=== PATIENT | male | born 1950 | race Caucasian/White ===

== ENCOUNTER 2018-06-24 12:09 | Emergency (ER) | payer MEDICARE, OTHER ==
[~2018-06-24] VITALS: Ht 180.3 cm; Wt 97.5 kg
[~2018-06-24 12:09] MED LIST: BP MED; CEFTIN500 MG PO; CIPROFLOXACIN500 M3 PO; FLOMAX PO; HCTZ; HYDROCODONE-ACET5 ML PO; LIDOCAINE VISC100 M1 SWISH&SPIT; MAGIC MOUTHWASH PO; MULTIVITAMINS1 EAC7 PO; Magic Mouthwash PO; NORCO 7.5-3251 EACH PO; PERCOCET 5-3251 EACH PO; TAMSULOSIN HCL0.4 MG PO; VITAMIN B COMP1 EACH PO; VITAMIN B-12100 MC1 PO; ZOFRAN4 MG PO; ZPAK PO
[2018-06-24] MEDS ORDERED: TRAZODONE HCL100 MG PO (12:33)
[2018-06-24] MEDS ORDERED: LISINOPRIL10 MG PO (12:34)
[2018-06-24 14:39] VITALS: BP 134/68
== END 2018-06-24 14:40 | disposition home or self-care (01) ==
LOC: M.ERS 12:09
DX: R60.0 Localized edema (principal); I10 Essential (primary) hypertension; G47.30 Sleep apnea, unspecified; N40.0 Benign prostatic hyperplasia without lower urinary tract symptoms; Z87.442 Personal history of urinary calculi

== ENCOUNTER 2018-12-13 17:51 | Inpatient (IN) | payer MEDICARE, OTHER ==
[~2018-12-13] VITALS: Ht 177.8 cm; Wt 99.3 kg
--- NOTE | ~2018-12-13 | OP ---
[address] [address] OPERATIVE REPORT Name: FANTASMA RODRIGUEZ Room: [address] IN .R.#: [id number] Admission: 12/13/18 Attend Phys: Laureen Oconnor MD Discharge: Date of : 50 Report #: [id number] THIS REPORT FOR: //name// CC: FAM unknown Laureen Oconnor DATE OF SERVICE: 12/14/2018 UROLOGY OPERATIVE NOTE PREOPERATIVE DIAGNOSIS: Right ureteral stone with ureteral obstruction. POSTOPERATIVE DIAGNOSIS: Right ureteral stone with ureteral obstruction. PROCEDURE PERFORMED: Cystoscopy with right retrograde pyelogram, ureteroscopy, laser lithotripsy, and stent placement. SURGEON: Durga Cates MD ANESTHESIA: General. ESTIMATED BLOOD LOSS: Minimal. COMPLICATIONS: None. INDICATION FOR PROCEDURE: This is a 68-year-old gentleman, who presented to the Emergency Room with severe right flank pain. He has a history of kidney stones. A CT scan was performed. It revealed an 8 mm proximal right ureteral stone with hydronephrosis. His options for management were discussed in detail and he was elected to proceed with cystoscopy, right retrograde pyelogram, ureteroscopy, laser lithotripsy, and stent. The risks, benefits, and possible complications were explained in detail. He has a chance to ask questions, which were answered to his satisfaction and he elected to proceed. DESCRIPTION OF PROCEDURE: After obtaining informed consent, the patient was taken to the operating room and placed in supine position. After adequate general anesthesia and IV antibiotics, he was prepped and draped in the dorsal lithotomy position. A 21-Prydeinig cystoscope with 30-degree lens was introduced into the anterior urethra with normal caliber all the way down to the prostatic urethra, which showed several friable vessels at the bladder neck and mid prostate. There was small amount of nodular regrowth throughout the prostate. Upon entering the bladder, the bladder was systematically inspected. There were no stones, tumors, or diverticula. The right ureteral orifice was cannulated with a 5-Prydeinig open-ended ureteral catheter and retrograde pyelogram was performed. A normal caliber ureter all the way up to the proximal ureter, where there was a filling defect estimated about 7-8 [place] [address] OPERATIVE REPORT Name: FANTASMA RODRIGUEZ Room: [address]#: [id number] Admission: 12/13/18 Attend Phys: Laureen Oconnor MD Discharge: Date of : 50 Report #: [id number] known stone. There was proximal hydronephrosis. A sensor guidewire was passed in retrograde fashion alongside the stone into the renal pelvis. The stone appeared to be pushed back into the renal pelvis. A second wire was placed as a safety wire and an 11 ureteral access sheath was gently passed over one of the wires into the mid ureter under fluoroscopic guidance. Flexible ureteroscopy was then carried out through the access sheath into the kidney, where the stone was identified in an upper pole allison. Using a 200 micron holmium laser fiber, the stone was fragmented in multiple tiny fragments. The larger fragments were basketed and retrieved atraumatically. These were passed off the table and sent to the lab for stone analysis. The remainder of the kidney was inspected. There was no evidence of any stones or other abnormalities. The access sheath was removed and the ureter was inspected with removal of the ureteroscope. There was small amount of edema and erythema where the stone had been lodged in the proximal ureter. Otherwise, there was no evidence of any ureteral injury or stone fragments. The cystoscope was replaced in the bladder and a 4.8 x 28 cm double-J stent was passed in retrograde fashion over the wire into the renal pelvis. A good coil was noted overlying the renal pelvis under fluoroscopy and a good coil was directly visualized in the bladder. The bladder was drained. Uro-Jet was applied per urethra and there was some small amount of bleeding from the prostatic urethra due to some friable vessels, so these were cauterized with a Bugbee. Hemostasis was then obtained. The bladder was drained and then the patient was extubated and taken to recovery room in good condition. Plan is to follow up in 1-2 weeks for stent removal. The patient does not need a KUB prior to his appointment. By: [id number] Cates MD /hailey
[~2018-12-13 17:51] MED LIST changes: +LISINOPRIL10 MG PO; +TRAZODONE HCL100 MG PO
[2018-12-13 17:58] VITALS: BP 181/77
[2018-12-13 18:14] LABS: URINE BILIRUBIN NEGATIVE (Negative); URINE BLOOD 3+ (Negative); URINE CLARITY CLEAR; URINE COLOR YELLOW; URINE GLUCOSE-RANDOM NEGATIVE (Negative); URINE KETONES TRACE (Negative); URINE LEUKOCYTES-REFLEX TRACE (Negative); URINE NITRITE-REFLEX NEGATIVE (Negative); URINE PROTEIN NEGATIVE (Negative); URINE UROBILINOGEN 0.2 E.U./dl (0.2-1.0)
[2018-12-13 18:55] LABS: SQUAMOUS >10 Many /LPF (0-3); URINE RBC >20 Many /HPF (0-2)
[2018-12-13 18:56] LABS: BACTERIA-REFLEX 1-9 Few /HPF (None Seen); CASTS None Seen /LPF (None Seen); URINE WBC-REFLEX 0-5 Rare /HPF (0-5)
[2018-12-13 18:57] LABS: CRYSTALS None Seen /LPF (None Seen); MUCUS None Seen strn/LPF (None Seen)
[2018-12-13 19:40] LABS: HEMATOCRIT 44.1 % (42.0-52.0); HEMOGLOBIN 14.8 gm/dL (14.0-18.0); MCH 30.6 pg (26.0-34.0); MCHC 33.6 g/dL (28.0-37.0); MCV 91.1 fL (80.0-100.0); MPV 8.7 fl. (7.2-11.1); NUCLEATED RBCS 0 /100WBC; PLATELET COUNT* 205 thou/uL (150-400); RBC 4.84 mil/uL (4.50-6.00); RDW-CV 14.9 % (10.5-14.5); WBC 11.2 thou/uL (4.0-11.0)
[2018-12-13 19:53] LABS: ANION GAP 13 mmol/L (7-16); BUN 21 mg/dL (7-18); CALCIUM 9.8 mg/dL (8.5-10.1); CHLORIDE 102 mmol/L (98-107); CO2 25 mmol/L (21-32); CREATININE 1.2 mg/dL (0.6-1.3); GLUCOSE 121 mg/dL (70-99); POTASSIUM 3.6 mmol/L (3.5-5.1); SODIUM 140 mmol/L (136-145)
[2018-12-13 19:57] LABS: ALBUMIN 4.6 g/dL (3.4-5.0); ALKALINE PHOSPHATASE 78 U/L (46-116); LIPASE 120 U/L (73-393); SGOT 27 U/L (15-37); SGPT 32 U/L (30-65); TOTAL BILIRUBIN 0.8 mg/dL (<0.1-1.0); TOTAL PROTEIN 8.2 g/dL (6.4-8.2); TROPONIN-I LEVEL <0.06 ng/mL (<0.06)
[2018-12-13 20:21] LABS: ABSOLUTE LYMPHOCYTES 0.6 thou/uL (0.8-5.3); ABSOLUTE MONOCYTES 0.4 thou/uL (0.0-1.2); ABSOLUTE NEUTROPHILS 10.2 thou/uL (1.6-8.1); PLATELET ESTIMATE ADEQUATE
[2018-12-13 20:21] LABS: AMP/METHAMP Negative (Negative); BARBITURATES Negative (Negative); BENZODIAZEPINES Negative (Negative); COCAINE Negative (Negative); METHADONE Negative (Negative); OPIATES Negative (Negative); PCP Negative (Negative); THC POSITIVE (Negative)
[2018-12-13 23:58] VITALS: BP 149/88
[2018-12-14 00:50] VITALS: BP 152/79
--- NOTE | 2018-12-14 05:29 | NUR ---
PT ADMITTED TO FLOOR FROM ER AT ABOUT MIDNIGHT. VSS ON RA. ADMISSION ASSESSMENT COMPLETED AND DOCUMENTED. NO PAIN MEDS GIVEN THIS SHIFT. NPO AFTER MIDNIGHT. PT ORIENTED TO ROOM AND CALL LIGHT. PT SLEPT WELL THIS SHIFT. CALL LIGHT WITHIN REACH. HOURLY ROUNDINGS MADE. WILL CONTINUE TO MONITOR.
[2018-12-14 07:30] VITALS: BP 178/91
[2018-12-14 09:54] VITALS: BP 178/91
--- NOTE | 2018-12-14 11:45 | NUR ---
SW attempted to meet with pt to complete initial assessment, but pt was off of the unit for surgery at the time. SW to continue to follow to assist with safe dc planning.
[2018-12-14 13:10] VITALS: BP 163/96
[2018-12-14] MEDS ORDERED: LEVSIN-SL0.125 MG PO (13:47)
[2018-12-14] MEDS ORDERED: NORCO 5-325 TA1 EAC1 PO (13:48)
[2018-12-14] MEDS ORDERED: PHENAZOPYRIDIN200 M2 PO (13:48)
[2018-12-14 13:49] VITALS: BP 178/91
--- NOTE | 2018-12-14 15:03 | NUR ---
PATIENT RETURNED FROM [facility] THIS AFTERNOON. UP WITH ASSISTANCE, VOIDING WITHOUT DIFFICULTY, TOLERATING DIET. NO COMPLAINTS OF PAIN. VITALS STABLE. OK FROM UROLOGY STANDPOINT TO DISCHARGE. DR. WINSLOW NOTIFIED AND OK TO DISCHARGE HOME. IV DC'D. VERBALIZES UNDERSTANDING OF PAPERWORK AND SCRIPTS. PATIENT AMBULATED OUT WITH NURSE AND SPOUSE AND ALL BELONGINGS.
--- NOTE | 2018-12-14 15:40 | EKG ---
[place] [address] ELECTROCARDIOGRAM REPORT Name: FANTASMA RODRIGUEZ Room: [address] DIS IN M.R.#: [id number] Admission: 12/13/18 Attend Phys: Laureen Oconnor MD Discharge: 12/14/18 Date of : 50 Report #: [id number] THIS REPORT FOR: //name// [facility] ED Test Date: 2018-12-13 Test Time: 20:13:26 Pat Name: FANTASMA RODRIGUEZ Department: Room: [facility] Gender: M Housing Relocation: [place] : 1950 Requested By: Radha Lucas Order Number: [id number] MD: Eh Casey Measurements Intervals [place] Rate: 66 P: 60 LA: 218 QRS: -34 QRSD: 103 T: 57 QT: 453 QTc: 475 Interpretive Statements Sinus rhythm Borderline prolonged LA interval Probable left atrial enlargement Left axis deviation Minimal ST elevation, anterolateral leads Compared to ECG 07/31/2013 12:55:51 Left-axis deviation now present ST (T wave) deviation now present Electronically Signed On 12-14-2018 15:40:20 CDT by Eh Casey [email or web address] <ELECTRONICALLY SIGNED> By: Eh Casey MD, FACC 12/14/18 1540 12 12 Eh Casey MD, FACC /EPI
== END 2018-12-14 15:05 | disposition home or self-care (01) | DRG 661 ==
LOC: M.ERS 17:51 → M.ORTHSURG 21:17 → M.TBA-ER 21:17 → M.ORTHSURG 23:48
PROVIDERS: Nurse Practitioner Family; ADMIT Internal Medicine
PROC: 0T768DZ Dilation of Right Ureter with Intraluminal Device, Via Natural or Artificial Opening Endoscopic (ICD-10-PCS; principal; 2018-12-14)
PROC: 0TC68ZZ Extirpation of Matter from Right Ureter, Via Natural or Artificial Opening Endoscopic (ICD-10-PCS; principal; 2018-12-14)
PROC: BT1D1ZZ Fluoroscopy of Right Kidney, Ureter and Bladder using Low Osmolar Contrast (ICD-10-PCS; principal; 2018-12-14)
DX: N13.2 Hydronephrosis with renal and ureteral calculous obstruction (principal); R31.29 Other microscopic hematuria; N40.0 Benign prostatic hyperplasia without lower urinary tract symptoms; I10 Essential (primary) hypertension

== ENCOUNTER 2019-06-15 08:34 | Emergency (ER) | payer MEDICARE, OTHER ==
[~2019-06-15] VITALS: Ht 180.3 cm; Wt 93.4 kg
[~2019-06-15 08:34] MED LIST changes: +LEVSIN-SL0.125 MG PO; +NORCO 5-325 TA1 EAC1 PO; +PHENAZOPYRIDIN200 M2 PO
[2019-06-15] MEDS ORDERED: MELOXICAM7.5 MG PO (08:56)
[2019-06-15] MEDS ORDERED: PROTONIX40 M2 PO (08:56)
[2019-06-15 09:28] LABS: ABSOLUTE EOSINOPHILS 0.2 thou/uL (0.0-0.7); ABSOLUTE LYMPHOCYTES 1.2 thou/uL (0.8-5.3); ABSOLUTE MONOCYTES 0.4 thou/uL (0.0-1.2); ABSOLUTE NEUTROPHILS 2.6 thou/uL (1.6-8.1); BASOPHILS 0.9 %; EOSINOPHILS 3.9 %; HEMATOCRIT 43.3 % (42.0-52.0); HEMOGLOBIN 14.7 gm/dL (14.0-18.0); LYMPHOCYTES 27.1 %; MCH 30.9 pg (26.0-34.0); MCHC 33.9 g/dL (28.0-37.0); MCV 91.1 fL (80.0-100.0); MONOCYTES 8.3 %; MPV 8.3 fl. (7.2-11.1); NUCLEATED RBCS 0 /100WBC; PLATELET COUNT* 166 thou/uL (150-400); POLYS 59.8 %; RBC 4.75 mil/uL (4.50-6.00); RDW-CV 14.2 % (10.5-14.5); WBC 4.4 thou/uL (4.0-11.0)
[2019-06-15 09:37] LABS: CALCIUM 8.6 mg/dL (8.5-10.1); CREATININE 0.7 mg/dL (0.6-1.3); POTASSIUM 3.9 mmol/L (3.5-5.1)
[2019-06-15 09:37] LABS: URINE BILIRUBIN NEGATIVE (Negative); URINE BLOOD TRACE (Negative); URINE CLARITY CLEAR; URINE COLOR YELLOW; URINE GLUCOSE-RANDOM NEGATIVE (Negative); URINE KETONES NEGATIVE (Negative); URINE LEUKOCYTES-REFLEX 1+ (Negative); URINE NITRITE-REFLEX NEGATIVE (Negative); URINE PROTEIN NEGATIVE (Negative); URINE UROBILINOGEN 0.2 E.U./dl (0.2-1.0)
[2019-06-15 09:41] LABS: ALBUMIN 3.7 g/dL (3.4-5.0); TOTAL BILIRUBIN 0.8 mg/dL (<0.1-1.0); TOTAL PROTEIN 6.9 g/dL (6.4-8.2)
[2019-06-15 09:46] LABS: BACTERIA-REFLEX 1-9 Few /HPF (None Seen); CASTS None Seen /LPF (None Seen); CRYSTALS None Seen /LPF (None Seen); MUCUS 0-3 Light strn/LPF (None Seen); SQUAMOUS 0-3 Few /LPF (0-3); URINE RBC 0-2 Rare /HPF (0-2); URINE WBC-REFLEX 0-5 Rare /HPF (0-5)
[2019-06-15] MEDS ORDERED: KEFLEX500 M1 PO (10:37)
[2019-06-15] MEDS ORDERED: NORCO 5-325 TA1 EAC1 PO ×2 (10:37→10:43)
[2019-06-15] MEDS ORDERED: ZOFRAN ODT4 MG DISSOLVE (10:37)
[2019-06-15] MEDS ORDERED: FLEXERIL PO (10:43)
[2019-06-15 10:54] VITALS: BP 160/85
== END 2019-06-15 10:55 | disposition home or self-care (01) ==
LOC: M.ERS 08:34
PROVIDERS: Emergency Medicine Emergency Medical Services
DX: N12 Tubulo-interstitial nephritis, not specified as acute or chronic (principal); I10 Essential (primary) hypertension; G47.30 Sleep apnea, unspecified; N40.0 Benign prostatic hyperplasia without lower urinary tract symptoms; Z87.442 Personal history of urinary calculi

== ENCOUNTER 2019-11-14 10:51 | Emergency (ER) | payer MEDICARE, OTHER ==
[~2019-11-14] VITALS: Ht 182.9 cm; Wt 98.9 kg
[~2019-11-14 10:51] MED LIST changes: +FLEXERIL PO; +KEFLEX500 M1 PO; +MELOXICAM7.5 MG PO; +PROTONIX40 M2 PO; +ZOFRAN ODT4 MG DISSOLVE
[2019-11-14 12:48] LABS: HEMATOCRIT 41.2 % (42.0-52.0); HEMOGLOBIN 14.1 gm/dL (14.0-18.0); MCHC 34.2 g/dL (28.0-37.0); MCV 93.5 fL (80.0-100.0); MPV 8.5 fl. (7.2-11.1); RBC 4.41 mil/uL (4.50-6.00); RDW-CV 13.8 % (10.5-14.5); WBC 9.9 thou/uL (4.0-11.0)
[2019-11-14] MEDS ORDERED: NORCO 5-325 TA1 EAC1 PO (12:54)
[2019-11-14 13:00] LABS: CALCIUM 8.1 mg/dL (8.5-10.1); CREATININE 0.8 mg/dL (0.6-1.3); POTASSIUM 3.4 mmol/L (3.5-5.1)
[2019-11-14 13:18] LABS: ALBUMIN 3.8 g/dL (3.4-5.0); TOTAL BILIRUBIN 0.9 mg/dL (<0.1-1.0)
[2019-11-14 13:40] VITALS: BP 165/85
--- NOTE | 2019-11-14 16:38 | EKG ---
[place] [address] ELECTROCARDIOGRAM REPORT Name: FANTASMA RODRIGUEZ Room: [facility]#: [id number] Admission: 11/14/19 Attend Phys: Discharge: 11/14/19 Date of : 50 Date of Service: 11/14/19 1057 Report #: [id number] THIS REPORT FOR: //name// [facility] ED Test Date: 2019-11-14 Test Time: 10:57:06 Pat Name: FANTASMA RODRIGUEZ Department: Room: Gender: Integrated Campaign Manager: CCD : 1950 Requested By: Eddie Day Order Number: [id number] MD: Eh Casey Measurements Intervals [place] Rate: 69 P: 86 SD: 213 QRS: -84 QRSD: 163 T: 57 QT: 480 QTc: 515 Interpretive Statements Sinus arrhythmia Borderline prolonged SD interval RBBB and LAFB Compared to ECG 12/13/2018 20:13:26 Left anterior fascicular block now present Right bundle-branch block now present Sinus rhythm no longer present Left-axis deviation no longer present ST (T wave) deviation no longer present Electronically Signed On 11-14-2019 16:36:11 CDT by Eh Casey [email or web address] <ELECTRONICALLY SIGNED> By: Eh Casey MD, FAC 11/14/19 1636 1057 1057 Eh Casey MD, [facility] /EPI
== END 2019-11-14 13:41 | disposition home or self-care (01) ==
LOC: M.ERS 10:51
PROVIDERS: Emergency Medicine Emergency Medical Services
DX: S43.035A Inferior dislocation of left humerus, initial encounter (principal); I10 Essential (primary) hypertension; G47.30 Sleep apnea, unspecified; Z87.442 Personal history of urinary calculi; Z96.652 Presence of left artificial knee joint; W01.0XXA Fall on same level from slipping, tripping and stumbling without subsequent striking against object, initial encounter; Y93.89 Activity, other specified; Y92.89 Other specified places as the place of occurrence of the external cause; Y99.8 Other external cause status

== ENCOUNTER 2021-04-28 08:43 | Emergency (ER) | payer MEDICARE, OTHER ==
[~2021-04-28] VITALS: Ht 177.8 cm; Wt 95.3 kg
[2021-04-28] MEDS ORDERED: TRAZODONE HCL50 MG PO (09:02)
[2021-04-28 10:03] LABS: HEMATOCRIT 40.3 % (42.0-52.0); HEMOGLOBIN 13.5 gm/dL (14.0-18.0); MCH 30.9 pg (26.0-34.0); MCHC 33.6 g/dL (28.0-37.0); MPV 8.3 fl. (7.2-11.1); RBC 4.38 mil/uL (4.50-6.00); RDW-CV 13.9 % (10.5-14.5)
[2021-04-28 10:18] LABS: CALCIUM 8.7 mg/dL (8.5-10.1); CREATININE 0.8 mg/dL (0.6-1.3); POTASSIUM 3.8 mmol/L (3.5-5.1)
[2021-04-28 10:41] LABS: URINE BLOOD 3+ (Negative); URINE CLARITY CLEAR; URINE COLOR STRAW; URINE GLUCOSE-RANDOM NEGATIVE (Negative); URINE KETONES NEGATIVE (Negative); URINE LEUKOCYTES-REFLEX 1+ (Negative); URINE NITRITE-REFLEX NEGATIVE (Negative); URINE PROTEIN 2+ (Negative); URINE UROBILINOGEN 0.2 E.U./dl (0.2-1.0)
[2021-04-28 10:45] LABS: ICTOTEST (BILI CONFIRMATORY) Negative (Negative); URINE BILIRUBIN 1+ (Negative)
[2021-04-28 10:58] LABS: BACTERIA-REFLEX 1-9 Few /HPF (None Seen); CASTS None Seen /LPF (None Seen); CRYSTALS None Seen /LPF (None Seen); MUCUS 0-3 Light strn/LPF (None Seen); SQUAMOUS 0-3 Few /LPF (0-3); URINE RBC >20 Many /HPF (0-2); URINE WBC-REFLEX 0-5 Rare /HPF (0-5)
[2021-04-28 11:03] VITALS: BP 145/95
== END 2021-04-28 11:03 | disposition home or self-care (01) ==
LOC: M.ERS 08:43
PROVIDERS: Emergency Medicine Emergency Medical Services
DX: R31.9 Hematuria, unspecified (principal); I10 Essential (primary) hypertension; F12.90 Cannabis use, unspecified, uncomplicated; Z87.442 Personal history of urinary calculi; Z98.890 Other specified postprocedural states; Z79.891 Long term (current) use of opiate analgesic; Z79.899 Other long term (current) drug therapy; Z79.1 Long term (current) use of non-steroidal anti-inflammatories (NSAID)